=== PATIENT | female | born 1995 | race African-American/Black ===

== ENCOUNTER 2016-07-06 02:55 | Emergency (ER) | payer MEDICAID, OTHER ==
[~2016-07-06] VITALS: Ht 177.8 cm; Wt 115.0 kg
[~2016-07-06 02:55] MED LIST: IBUP800T23 PO; METH750T2 PO
[2016-07-06 03:03] VITALS: BP_SYST 159; BP_DIAS 8; BP_DIAS 81; PULSE 102; RESP 14; TEMP 100.1; O2SAT 100
[2016-07-06] MEDS ORDERED: PHENERGAN W CODEIN PO (04:07)
[2016-07-06] MEDS ORDERED: ZITHTAB PO (04:07)
--- NOTE | 2016-07-06 04:07 | PD ---
HPI Chief Complaint: Cold / Flu Symptoms Time Seen by Provider: 03:52 Travel History International Travel<30 days: No Contact w/Intl Traveler<30days: No Traveled to known affect area: No History of Present Illness HPI 21-year-old female complains of headache, sore throat, coughing congestion, generalized malaise, fever. Patient states that the symptoms started 3 days ago. Patient states that she has mild aching headache, earache sore throat, productive cough and shortness of breath. Patient states that she has intermittent fever up to 102 at home. Patient denies abdominal pain. Patient states that she has nausea but no vomiting or diarrhea. Patient states that her boss was sick recently with a flu virus. PFSH Past Medical History Medical History: Denies Significant Hx Tetanus Vaccination: > 5 Years Influenza Vaccination: No ?: Not LMP: 06/08/16 Past Surgical History Appendectomy: Yes Social History Alcohol Use: No (OCC) Tobacco Use: No Substance Use: No Allergies-Medications (Allergen,Severity, Reaction): Coded Allergies: No Known Allergies (Unverified , 07/06/16) Reported Meds & Prescriptions Reported Meds & Active Scripts Active No Active Prescriptions or Reported Medications Review of Systems General / Constitutional: Positive: Fever HENT: Positive: Headaches Respiratory: Positive: Cough Gastrointestinal: Positive: Nausea Physical Exam Narrative GENERAL: Well-nourished, well-developed patient. SKIN: Warm and dry. HEAD: Normocephalic. EYES: No scleral icterus. No injection or drainage. TM: Clear. Throat: Nonerythematous. NECK: Supple, trachea midline. No JVD or lymphadenopathy. CARDIOVASCULAR: Regular rate and rhythm without murmurs, gallops, or rubs. RESPIRATORY: Breath sounds equal bilaterally. No accessory muscle use. GASTROINTESTINAL: Abdomen soft, non-tender, nondistended. MUSCULOSKELETAL: No cyanosis, or edema. BACK: Nontender without obvious deformity. No CVA tenderness. Data Data Last Documented VS Vital Signs Date Time Temp Pulse Resp B/P Pulse Ox O2 Delivery O2 Flow Rate FiO2 07/06/16 03:03 100.1 102 14 159/81 100 Room Air MDM Medical Decision Making Medical Screen Exam Complete: Yes Emergency Medical Condition: Yes Differential Diagnosis Differential diagnosis including URI, otitis media, pharyngitis, bronchitis, pneumonia, viral syndrome. Narrative Course 21-year-old female with headache sore throat earache coughing congestion fever body ache nausea. Diagnosis Primary Impression: Bronchitis Additional Impression: Viral syndrome Patient Instructions: General Instructions Additional Instructions: Take medications as directed. Tylenol for fever aching pain and headache. Follow-up with personal physician. Return if persistent problem or worse. Med/Other Pt SpecificInfo: Prescription(s) given Scripts [Phenergan W Codein] No Conflict Check10 Ml PO Q6HR #120 Prov:Robe Brasher MD 07/06/16 Azithromycin (Zithromax Z-[place])250 Mg Idio650 Mg PO DIRECTED #1 DSPK 500 MG (2 tabs) day 1, then 1 tab days 2-5. Prov:Robe Brasher MD 07/06/16 Disposition: 01 DISCHARGE HOME Condition: Stable Robe Brasher MD Jul 06, 2016 04:07
== END 2016-07-06 04:40 | disposition home or self-care (01) ==
LOC: NEPE 02:55
DX: J40 Bronchitis, not specified as acute or chronic (principal); B34.9 Viral infection, unspecified; R51 Headache; R07.0 Pain in throat; H92.09 Otalgia, unspecified ear; R50.9 Fever, unspecified; M79.1 Myalgia; R11.0 Nausea
CPT/HCPCS: 99283